=== PATIENT | female | born 1985 | race Caucasian/White ===

== ENCOUNTER 2019-07-27 11:21 | Emergency (ER) | payer SELFPAY ==
[2019-07-27 11:22] VITALS: BP 112/65; PULSE 84; RESP 17; TEMP 37.1; O2SAT 100; BMI 24.9
--- NOTE | 2019-07-27 11:32 | ED.VISSUMM ---
- ER Visit Summary Date of Service: 07/27/19 Chief Complaint: Cough History of Present Illness: The patient is a 34 F who presents with a cough. She has had this cough for 3 weeks. She has had some nasal congestion associated with this. No fevers. She went to another ER twice last week. She was given Tessalon Perles, albuterol, prednisone and a cough syrup. She had a normal chest x-ray at that time. She states that she is still not getting any better. She coughed when she woke up this morning so she came into get evaluated here. No ear pain. No sore throat. Physical Examination: Vital signs reviewed. HEENT exam unremarkable. Heart is regular rate and rhythm without murmurs. Lungs are clear to auscultation. Abdomen is soft and nontender. Extremities reveal no edema. Skin exam normal. Neurologic exam normal. Test Results: None performed Emergency Department Course and Treatment: The patient's physical exam is normal. Her vital signs are normal as well. She is a smoker. I counseled her to refrain from smoking. I will give her a azithromycin for the longevity of her symptoms. I will give her Mucinex D as well. She will need to follow-up with her PCP if symptoms persist. Treatment Plan: [] Disposition: Discharge Impression: Acute bronchitis This note was generated with [employer] dictation software. It may contain incorrect words, spelling, and punctuation that were not noted in review of the chart prior to signing ED Disposition - Plan for ED Patient: Referrals: Care Physician,No Primary [Primary Care Provider] -
--- NOTE | 2019-07-27 11:34 | ED.DEP ---
ED Disposition - Plan for ED Patient: Disposition: Home or Assisted Living Instructions: BRONCHITIS, Antiobiotic Treatment (Adult) Prescriptions: Guaifenesin/Pseudoephedrne HCl [Mucinex D ER 600-60 mg Tablet] 1 ea PO BID #14 tab.er.12h Prescription Printed Azithromycin [Zithromax Z-José] 250 mg PO UD #1 box Prescription Printed Referrals: Care Physician,No Primary [Primary Care Provider] -
--- NOTE | 2019-07-27 11:49 | ED.RN ---
DISCHARGE INSTRUCTIONS GIVEN TO AND REVIEWED WITH PATIENT, PATIENT DENIES QUESTIONS OR CONCERNS AND VOICES UNDERSTANDING OF DISCHARGE INSTRUCTIONS. PT AMBULATE OUT OF ROOM WITHOUT DIFFICULTY.
== END 2019-07-27 11:49 | disposition home or self-care (01) ==
LOC: ED 11:41
PROVIDERS: Emergency Provider Emergency Medicine
DX: J20.9 Acute bronchitis, unspecified (principal); F17.200 Nicotine dependence, unspecified, uncomplicated
CPT/HCPCS: 99282

== ENCOUNTER 2019-08-01 15:37 | Emergency (ER) | payer SELFPAY ==
[2019-08-01 15:38] VITALS: BP 123/90; PULSE 91; RESP 16; TEMP 36.7; O2SAT 99; BMI 25.2
--- NOTE | 2019-08-01 15:40 | ED.DCSUM_ITS ---
History of Present Illness Chief Complaint: Chest Pain Informant: Patient Onset: Weeks - Approximately 2 weeks of URI symptoms with right-sided chest pain Context: Sudden Onset Timing: Continuous Quality: Pain Location: Right anterior chest Current Severity: Mild Maximum Severity: Severe Worsened by: Deep breathing and especially movement Relieved by: Nothing Associated Symptoms: Rhinorrhea, congestion and productive cough Narrative: Patient is a 34-year-old female who was seen twice at outside facility and treated with prednisone. She was seen on Monday, July 27 and treated with antibiotics because of the duration of her illness. She continues to smoke 1/2 pack/day. She does report nasal symptoms. She states she initially had ear pain and was told she had a serous otitis without evidence of infection. She denies headache. She denies visual, ocular auditory symptoms. She denies neck pain. She has no history of PE or DVT. She has no risk factor for either. She denies hemoptysis. There is no history of trauma to direct or indirect. There are no skin lesions. She denies leg pain, swelling or discoloration. Prior similar symptoms: Yes Recent Illness/Hospitalization: Yes Past Medical History - Allergies and Home Meds Allergies/Adverse Reactions: Allergies No Known Allergies Allergy (Verified 08/01/19 15:41) Primary Care Physician: Care Physician,No Primary [Primary Care Provider] - Prior records reviewed: Yes Lives: Alone Smoking Status: Current every day smoker Alcohol: Rare Drugs: None Review of Systems General: Denies: Chills, Fever, Malaise, Subjective, Sweats Eyes: Denies: Visual changes - bilaterally, Blurred Vision - bilaterally ENT: Reports: Rhinorrhea. Denies: Bilateral ear pain, Sore throat Cardiovascular: Reports: Chest pain. Denies: Palpitations, Heart racing Respiratory: Reports: Cough, Sputum. Denies: Dyspnea, Dyspnea on exertion Gastrointestinal: Denies: Abdominal pain, Nausea, Vomiting, Diarrhea, Melena, Hematochezia Genitourinary: Denies: Dysuria, Hematuria Musculoskeletal: Denies: Myalgias, Arthralgias, Neck pain, Back pain, Swelling, Extremity Pain Skin: Denies: Rash, Wounds Neurological: Denies: Headache, Weakness, Numbness Endocrine: Denies: Polyuria, Polydipsia Allergy: Denies: Uticaria, Swelling of the mouth Physical Exam Inital Vital Signs reviewed: Yes General: Well nourished, Well developed, No Acute Distress Head: Normocephalic, Atraumatic Eyes: Perrl, EOMI. Negative for: Pale conjunctiva, Scleral icterus ENT: Moist mucous membranes, No rhinorrhea, TM's clear Neck: Supple, Nontender, No lymphadenopathy, No JVD Cardiovascular: Regular rate, Regular rhythm, No murmurs, Normal S1, Normal S2 Respiratory: No distress, CTA bilaterally, Chest tenderness Abdomen: Soft, Nontender, Nondistended, Normal bowel sounds Back: Nontender, Normal Inspection Extremities: Nontender, No edema. Negative for: Calf Tenderness Skin: Normal color, No rash, No Trauma. Negative for: Cyanosis, Diaphoresis, Jaundice Neurological: Alert, Oriented x3, Cranial nerves II-XII grossly intact, Normal Strength, Normal Sensation Psychological: Normal affect, Normal Mood Diagnostic/Tx/Re-eval Chest X-Ray - ED: 2 View, Read by ED Physician, Normal, Heart, Mediastinum, Bony Structures, No Acute Disease, Chronic Changes, - - Is no infiltrate or effusion noted. There is hyper aeration. 08/01/19 16:00 Chest PA and Lateral [RAD] Stat Laboratory Results 08/01/19 08/01/19 15:50 15:50 WBC 14.8 H RBC 4.09 L Hgb 13.1 Hct 39.7 MCV 97.1 MCH 32.0 MCHC 33.0 RDW Std Deviation 48.1 H RDW Coeff of Mikey 13.6 Plt Count 233 MPV 10.7 Immature Gran % (Auto) 1.200 H Neut % (Auto) 55.5 Lymph % (Auto) 34.3 Nicol[place] % (Auto) 7.8 Eos % (Auto) 0.9 Baso % (Auto) 0.3 Absolute Neuts (auto) 8.2 H Absolute Lymphs (auto) 5.07 H Nucleated RBC % 0 Sodium 141 Potassium 3.0 L Chloride 106 Carbon Dioxide 26.0 Anion Gap 9 BUN 6 L Creatinine 0.79 Estim Creat Clear Calc 94.82 Est GFR (MDRD) Af Amer 107 Est GFR (MDRD) Non-Af 89 BUN/Creatinine Ratio 7.6 L Glucose 90 Calcium 8.0 L White count is elevated which may be secondary to burst of prednisone/steroids. There is no shift. Chest x-ray was unremarkable. Patient been informed she may cough for another 2+ weeks and to take anti-inflammatory for her chest pain. - Medical Decision Making Patient presents with respiratory symptoms for approximately 2 weeks. Since this is her fourth ER visit will obtain chest x-ray and blood work. Patient has been informed since she is a smoker she may have a cough for greater than 4 weeks. ED Disposition - Plan for ED Patient: Disposition: Home or Assisted Living Diagnosis: Bronchitis, Pleurisy without effusion Instructions: Pleurisy, URI, Viral w/ Wheezing (Adult) Referrals: Care Physician,No Primary [Primary Care Provider] - Additional Instructions: It is in your best interest to stop smoking. Because you are a smoker you may have a cough for an additional 2 to 3 weeks. Take 4 ibuprofen tablets every 8 hours for your chest pain.
[2019-08-01 16:00] LABS: Absolute Lymphocyte Count 5.07 X10^3/uL (0.83-4.51); Absolute Neutrophil Count 8.2 X10^3/uL (2.0-7.7); Basophil# 0.05 X10^3/uL; Basophil% 0.3 % (0-1); Eosinophil# 0.14 X10^3/uL; Eosinophils% 0.9 % (0-5); Hematocrit 39.7 % (37-47); Hemoglobin 13.1 g/dL (12.0-15.0); Lymphocyte # 5.07 X10^3/ul (4.0); Lymphocyte % 34.3 % (19-41); Mean Corpuscular Volume 97.1 fL (81-99); Mean Platelet Vol. 10.7 fl (6.2-12.0); Monocyte# 1.15 X10^3/uL; Monocyte% 7.8 % (0-10); NRBC Flagged by Analyzer 0 % (0-5); Neutrophil % 55.5 % (47-70); POSITIVE DIFFERENTIAL YES; Platelet Count 233 K/mm3 (150-450); RBC Distribution Width CV 13.6 % (11.6-14.6); RBC Distribution Width SD 48.1 fl (35.1-43.9); Red Blood Count 4.09 M/mm3 (4.2-5.4); White Blood Count 14.8 K/mm3 (4.4-11.0)
--- NOTE | 2019-08-01 16:00 | RAD_ITS ---
STUDY: X-RAY CHEST REASON FOR EXAM: Female, 34 years old. Right-sided pleuritic chest pain, cough and congestion. TECHNIQUE: 2 views COMPARISON: None. FINDINGS: The left lung appears well-expanded and clear. The right lung appears generally clear; however the right diaphragm in the posterior costophrenic angle lacks clear visibility suggesting mild right lower lobe infiltrate or atelectasis. Negative for substantial pleural effusion. Normal size heart. Normal mediastinum and liset. Normal visualized pulmonary arteries. Normal visualized aortic arch and descending thoracic aorta. Normal visualized thoracic spine. Normal visualized ribs, clavicles, and shoulders. There is no demonstrated abnormality of the visualized soft tissue structures of the upper abdomen. RAD/Chest PA and Lateral IMPRESSION: Indiscrete right hemidiaphragm in the posterior sulcus suggesting a small infiltrate or atelectasis without substantial pleural effusion. Otherwise normal chest. Electronically Signed: Gina Dorantes MD at 16:20 EST , Service support ,
[2019-08-01 16:04] LABS: Differential Indicated SCAN CRITERIA MET
[2019-08-01 16:13] LABS: Anion Gap 9 (5-15); BUN 6 mg/dL (7-18); BUN/Creat Ratio 7.6 RATIO (10-20); Chloride 106 mmol/L (98-107); Creatinine, Serum 0.79 mg/dL (0.55-1.02); EST Glomerular Filtration Rate 89 mL/min (>60); Est Glom Filt Rate - Afr Amer 107 mL/min (>60); Estimated Creatinine Clearance 94.82 ml/min; Glucose 90 mg/dL (74-106); Sodium Level 141 mmol/L (136-145)
[2019-08-01 16:25] VITALS: BP 111/72; PULSE 88; RESP 16; O2SAT 98
[2019-08-01 16:46] LABS: Differential Comment SCANNED
== END 2019-08-01 16:32 | disposition home or self-care (01) ==
PROVIDERS: Emergency Provider Emergency Medicine
DX: J40 Bronchitis, not specified as acute or chronic (principal); R09.1 Pleurisy; F17.210 Nicotine dependence, cigarettes, uncomplicated
CPT/HCPCS: 71046; 80048; 85025; 99284

== ENCOUNTER 2019-08-09 13:44 | Emergency (ER) | payer MEDICAID, SELFPAY ==
[2019-08-09 13:45] VITALS: BP 104/69; PULSE 88; RESP 13; TEMP 37; O2SAT 97; BMI 24.9
--- NOTE | 2019-08-09 14:01 | CT_ITS ---
STUDY: CT ABDOMEN AND PELVIS WITHOUT CONTRAST REASON FOR EXAM: Female, 34 years old. Abdominal pain. Ventral hernia repair. RADIATION DOSAGE (If Supplied By Facility): CTDIvol = ( 6.89 ) mGy, DLP = ( 309.85 ) mGycm TECHNIQUE: Transaxial images were obtained from the dome of the diaphragm to the symphysis pubis without oral contrast, and without intravenous contrast. Sagittal and coronal images were reconstructed. Individualized dose optimization techniques were used for this CT. COMPARISON: None. FINDINGS: The visualized lung bases are unremarkable. The visualized portions of the heart are within normal limits. Normal liver. Normal gallbladder and extrahepatic biliary system. Normal spleen. Normal pancreas. Normal bilateral adrenal glands. Mild degree of right hydronephrosis. Mild degree of dilatation of the proximal right ureter There is a 4.6 mm calculus in the mid pole calyx of the left kidney. Normal visualized stomach. Normal small intestine. Normal colon. The appendix is visualized and appears normal. Normal abdominal aorta. Normal inferior vena cava. Normal retroperitoneum. Normal urinary bladder. There is a 3.8 cm x 3.7 cm cystic mass in the right ovary. Prior hysterectomy. Prior tubal ligation. There is a small umbilical hernia containing fat. Normal osseous structures. CT/Abdomen/Pelvis without Cont IMPRESSION: 3.8 cm x 3.7 cm cystic mass in the right ovary. Mild degree of the right hydronephrosis and hydroureter. Electronically Signed: Eusebio White, at 15:21 EST , Service support ,
[2019-08-09 14:30] LABS: Internal QC Validated? YES +Cl - CLEAR BKGD
[2019-08-09 14:34] LABS: Pregnancy, Urine Negative Negative
--- NOTE | 2019-08-09 15:56 | ED.VIS.GI ---
History of Present Illness Chief Complaint: Abd Pain Narrative: Patient presenting for evaluation secondary to abdominal pain. Patient states she has been dealing with bronchitis over the course the last month. She has been on multiple medical managements for this including prednisone as well as antibiotics. She continues to have a nonproductive cough that is occasionally very forcible. Patient states she was having a coughing fit yesterday and felt that she may have potentially caused injury to a ventral hernia that she has. Patient states that she chronically has bulging at this ventral hernia that is just superior to her umbilicus. Patient reports that she has not been having any issues with nausea vomiting diarrhea constipation or decreased p.o. intake after this. Pain is worse with palpation. She denies any urinary signs or symptoms. Review of systems otherwise negative. Past Medical History - Allergies and Home Meds Allergies/Adverse Reactions: Allergies No Known Allergies Allergy (Verified 08/09/19 13:48) Primary Care Physician: Allegra Webb MD [STAFF PHYSICIAN] - Past Medical History: - - History of multiple abdominal surgeries Smoking Status: Current every day smoker Review of Systems All systems negative except as indicated General: Denies: Fever Eyes: Denies: Visual changes - bilaterally, Diplopia ENT: Denies: Rhinorrhea, Sore throat Cardiovascular: Denies: Chest pain, Palpitations Respiratory: Reports: Cough Gastrointestinal: Reports: Abdominal pain Genitourinary: Denies: Dysuria, Hematuria, Frequency Musculoskeletal: Denies: Back pain, Extremity Pain Skin: Denies: Rash, Wounds Neurological: Denies: Headache, Weakness, Numbness Psych: Denies: Depression Endocrine: Denies: Polyuria, Polydipsia Hematologic: Denies: Easy bleeding Allergy: Denies: Swelling of the mouth Physical Exam Vital Signs/Narrative: Vital Signs Temp Pulse Resp BP Pulse Ox 08/09/19 13:45 98.6 F 88 13 104/69 97 Inital Vital Signs reviewed: Yes General: Well nourished, Well developed, No Acute Distress Head: Normocephalic, Atraumatic Eyes: Perrl, EOMI ENT: Moist mucous membranes, No rhinorrhea Neck: Supple, Nontender Cardiovascular: Regular rate, Regular rhythm, No murmurs Respiratory: No distress, CTA bilaterally, Chest nontender Abdomen: Soft, Nondistended, Normal bowel sounds, Tender, Ventral hernia - Palpable just superior to the patient's umbilicus. This is tender to palpation and nonreducible. No evidence of overlying skin changes. Back: Nontender, Normal Inspection Extremities: Nontender, No edema Skin: Normal color, No rash Neurological: Alert, Oriented x3, Cranial nerves II-XII grossly intact, Normal Strength, Normal Sensation Psychological: Normal affect, Normal Mood Diagnostic/Tx/Re-eval - Medical Decision Making Patient presented with pain and ventral hernia. CT imaging was performed. This showed evidence of a fat-containing ventral hernia without evidence of incarceration or inflammatory changes. It did show evidence of a right sided ovarian cyst. Patient was informed of this, and she does know about this. Patient states that she just got out of detox, and does not have [employer] to follow-up with. She was provided with [employer] law office receptionist. Patient was given reassurance about her hernia. He was counseled on smoking cessation. ED Disposition - Plan for ED Patient: Disposition: Home or Assisted Living Diagnosis: Hernia, Ovarian cyst Instructions: Laparoscopic Hernia Repair, Ovarian Cyst Referrals: Allegra Webb MD [STAFF PHYSICIAN] -
== END 2019-08-09 16:05 | disposition home or self-care (01) ==
PROVIDERS: Emergency Provider Emergency Medicine
DX: K43.9 Ventral hernia without obstruction or gangrene (principal); N83.201 Unspecified ovarian cyst, right side; F17.200 Nicotine dependence, unspecified, uncomplicated; Z87.09 Personal history of other diseases of the respiratory system
CPT/HCPCS: 74176; 81025; 99282

== ENCOUNTER 2019-09-01 20:59 | Emergency (ER) | payer MEDICAID, SELFPAY ==
[2019-09-01 20:59] VITALS: BP 102/57; PULSE 88; RESP 15; TEMP 37.7; O2SAT 98; BMI 25.2
--- NOTE | 2019-09-01 21:14 | RAD_ITS ---
HISTORY: COUGH X 3 MONTHS, CURRENT SMOKER EXAM: XR Chest 2 Views: COMPARISON: August 01, 2019 FINDINGS: # of images incl. paperwork: 2 Lungs are clear. Heart is not enlarged. No acute osseous pathology perceived. Pulmonary vascularity is distinct. No effusions. RAD/Chest PA and Lateral IMPRESSION: Normal. at 2201 Reported and signed by: Heri Murphy MD Electronically Signed: Heri Murphy MD at 22:00 EST Tel , Service support ,
--- NOTE | 2019-09-01 22:26 | ED.VIS.GEN ---
History of Present Illness Chief Complaint: Cough Informant: Patient Onset: Month(s) Context: Gradual Onset Timing: Waxes and wanes Current Severity: Moderate Maximum Severity: Moderate Narrative: Patient presents with continued upper respiratory symptoms and bronchitis. She states the past 3 months she has had frequent URIs. She is been seen at the ER 3 times in the past month and a half. Patient states that she has cough with white phlegm and congestion. She does have sore throat. Yesterday she noted a fever and this prompted her return visit to the ER. She has some right lateral abdominal pain that is worse with palpation and movement. She thinks she pulled a muscle with coughing. She states she is had intermittent wheezing. Patient reports that approximately 6 weeks ago she was treated with antibiotics and prednisone and did improve for a while, but symptoms slowly recurred. She was seen at an urgent care last week and given Tessalon Perles and an albuterol inhaler but reports no significant provement with that. Patient does continue to smoke. She states she just recently got insurance and does not have a primary care physician at this time. - Past Medical History (1) Migraine Status: Chronic (2) Ovarian cyst Status: Chronic (3) Anxiety Status: Chronic (4) Depression Status: Chronic (5) History of appendectomy Status: Chronic (6) History of hysterectomy Status: Chronic Past Medical History - Allergies and Home Meds Allergies/Adverse Reactions: Allergies No Known Allergies Allergy (Verified 09/01/19 21:03) Primary Care Physician: Ana Lopez MD [STAFF PHYSICIAN] - As soon as possible Prior records reviewed: Yes Surgical History: appendectomy, hysterectomy Smoking Status: Current every day smoker Review of Systems General: Reports: Fever, Subjective, Sweats Eyes: Denies: Visual changes - bilaterally ENT: Reports: Sore throat. Denies: Bilateral ear pain Cardiovascular: Denies: Chest pain Respiratory: Reports: Dyspnea, Cough, Sputum, - - Wheezing Gastrointestinal: Reports: Abdominal pain. Denies: Nausea, Vomiting, Diarrhea Genitourinary: Denies: Dysuria Skin: Denies: Rash Neurological: Denies: Headache Hematologic: Denies: Easy bruising, Easy bleeding Allergy: Denies: Uticaria Physical Exam Vital Signs/Narrative: Vital Signs Temp Pulse Resp BP Pulse Ox 09/01/19 20:59 99.8 F H 88 15 102/57 L 98 Inital Vital Signs reviewed: Yes General: Well nourished, Well developed Head: Normocephalic Eyes: Perrl, EOMI ENT: Moist mucous membranes, No rhinorrhea, TM's clear Neck: Supple, - - Mild bilateral lymphadenopathy, right greater than left. Cardiovascular: Regular rate, Regular rhythm Respiratory: No distress, CTA bilaterally Abdomen: Soft, Nontender, Hypoactive bowel sounds Extremities: Nontender Skin: Normal color, No rash Neurological: Alert, Oriented x3 Psychological: Normal affect Diagnostic/Tx/Re-eval Impressions Chest X-Ray 09/01/19 21:14 IMPRESSION: Normal. at 2201 Reported and signed by: Heri Murphy MD Electronically Signed: Heri Murphy MD at 22:00 EST Tel , Service support , 09/01/19 21:14 Chest PA and Lateral [RAD] Stat - Medical Decision Making X-ray is unremarkable. Patient be treated with a course of doxycycline and prednisone. She will continue to use her inhaler at home. She is referred to Dr. Millan to establish a local primary care physician. ED Disposition - Plan for ED Patient: Disposition: Home or Assisted Living Diagnosis: Bronchitis Instructions: BRONCHITIS, Antiobiotic Treatment (Adult) Prescriptions: Doxycycline 100 mg PO BID #20 cap Prescription Printed Prednisone 10 mg PO UD #33 tab Prescription Printed Referrals: Ana Lopez MD [STAFF PHYSICIAN] - As soon as possible
[2019-09-01] MEDS: Doxycycline 100 MG CAPSULE PO (22:39)
[2019-09-01] MEDS: predniSONE 20 MG Tablet 40 MG PO (22:39)
[2019-09-01 22:43] VITALS: PULSE 89; RESP 18; O2SAT 97
== END 2019-09-01 22:43 | disposition home or self-care (01) ==
PROVIDERS: Emergency Provider Emergency Medicine
DX: J40 Bronchitis, not specified as acute or chronic (principal); F17.200 Nicotine dependence, unspecified, uncomplicated
CPT/HCPCS: 71046; 99283

== ENCOUNTER 2019-09-05 03:48 | Emergency (ER) | payer MEDICAID, SELFPAY ==
[2019-09-05 03:49] VITALS: BP 101/66; PULSE 81; RESP 16; TEMP 36.9; O2SAT 97; BMI 24.5
--- NOTE | 2019-09-05 04:16 | ED.VIS.BACK ---
History of Present Illness Chief Complaint: Cough Informant: Patient Onset: Days Context: Gradual Onset Injury: - - coughing Timing: Continuous Quality: Sharp Location: Lumbar Current Severity: Severe Maximum Severity: Severe Worsened by: improves with: Movement Relieved by: Nothing Narrative: Patient is a 34-year-old female with history of tobacco abuse and bronchitis presenting with low back pain. Patient states she has had bronchitis in the flu over the past 3 months. She is currently on a course of doxycycline and prednisone. She states over the past few days she has had worsening right lower back pain. She thinks it is from all of her coughing. She has the pain is worse when she tries to move. She has been taking ibuprofen for pain with no significant relief. She denies any radiation of pain. She denies any incontinence. She notes she does have increased urinary frequency but denies any dysuria, hematuria or abnormal vaginal bleeding/discharge. She had a hysterectomy and is not concerned for . She does report a fever of 101 2 days ago. No fever today. She denies any other complaints at this time. Past Medical History - Allergies and Home Meds Allergies/Adverse Reactions: Allergies No Known Allergies Allergy (Verified 09/05/19 03:59) Primary Care Physician: Care Physician,No Primary [Primary Care Provider] - Past Medical History: - - Anxiety, depression, bronchitis, low back pain, migraine headaches, ovarian cyst Surgical History: appendectomy, hysterectomy Smoking Status: Current every day smoker Review of Systems General: Denies: Chills, Fever, Sweats Eyes: Denies: Visual changes - bilaterally, Diplopia ENT: Denies: Rhinorrhea, Sore throat Cardiovascular: Denies: Chest pain, Palpitations Respiratory: Reports: Cough - For the past 3 months. Denies: Dyspnea, Dyspnea on exertion Gastrointestinal: Denies: Abdominal pain, Nausea, Vomiting, Diarrhea, Melena, Hematochezia Genitourinary: Denies: Dysuria, Hematuria, Frequency Musculoskeletal: Reports: Back pain - Right lower. Denies: Extremity Pain Skin: Denies: Rash, Wounds Neurological: Denies: Headache, Weakness, Numbness Physical Exam Vital Signs/Narrative: Vital Signs Temp Pulse Resp BP Pulse Ox 09/05/19 03:49 98.5 F 81 16 101/66 97 Inital Vital Signs reviewed: Yes General: Well nourished, Well developed Head: Normocephalic, Atraumatic Eyes: Perrl, EOMI ENT: Moist mucous membranes, No rhinorrhea Neck: Supple, Nontender Cardiovascular: Regular rate, Regular rhythm, No murmurs Respiratory: No distress, CTA bilaterally, Chest nontender, - - Patient does not cough during my evaluation Abdomen: Soft, Nontender, Nondistended, Normal bowel sounds, No masses Back: Normal Inspection, Paraspinal Tenderness - Right lower lumbar, Negative SLR - Right, Negative SLR - Left. Negative for: Spinal tenderness, CVA tenderness Extremeties: Nontender, No edema, Strong Pulses, Symmetric Skin: Normal color, No rash Neuro: Alert, Oriented, Normal Strength, Normal Sensation, Normal DTR, Normal Gait Psychological: Normal affect Diagnostic/Tx/Re-eval Laboratory Data 09/05/19 04:25 Urine Color Yellow Urine Clarity Clear Urine pH 6.5 Ur Specific [place] 1.015 Urine Protein Negative Urine Glucose (UA) Normal Urine Ketones Negative Urine Occult Blood Negative Urine Nitrite Negative Urine Bilirubin Negative Urine Urobilinogen Normal Ur Leukocyte Esterase 25 H Urine RBC 0 SEEN Urine WBC 0-5 SEEN Ur Squamous Epith Cells 0-5 SEEN Urine Bacteria 0 SEEN Urine Mucus 0 SEEN - Medical Decision Making Patient is evaluated for atraumatic low back pain. She attributes it to her recent bronchitis and coughing. She states it feels like she pulled a muscle in her back. Patient does have right paraspinal tenderness palpation. She does not have CVA tenderness. A urinalysis is obtained which is 25 leukoesterase but otherwise normal. I do not suspect pyelonephritis or ureterolithiasis as the cause of her pain. I do think this is muscle skeletal. She does not have any midline tenderness or findings concerning for cauda equina syndrome. In the ER she is treated with Norflex and a larger patch. She will be discharged home with a short course of Flexeril. She is encouraged to continue to alternate Tylenol and ibuprofen for her pain. She is counseled that she can get Lidoderm patches 4% [id number] at any local drugstore. Patient is counseled on signs and symptoms requiring return to the emergency room. Patient verbalizes agreement and understand this plan. Patient discharged home in stable and improved condition. ED Disposition - Plan for ED Patient: Disposition: Home or Assisted Living Diagnosis: Low back pain Instructions: Back Sprain/Strain Prescriptions: cycloBENZAPRine HCl [Flexeril] 10 mg PO TID PRN PRN #15 tab PRN Reason: Muscle Spasm Prescription Printed Referrals: Ana Lopez MD [STAFF PHYSICIAN] - Additional Instructions: It is very important that you establish and follow-up with a primary care doctor. I suspect you pulled a muscle in your back or have a muscle spasm that is causing your pain today. I do not think you have any problem kidneys at this time. Apply heat to your back for pain. Continue to alternate ibuprofen and Tylenol. Return the emergency room if you have worsening symptoms.
[2019-09-05] MEDS: Orphenadrine 60 MG/2 ML Ampul IM (04:17)
[2019-09-05 04:30] LABS: Bacteria 0 SEEN /hpf (None Seen); Mucous, Urine 0 SEEN /hpf (<or=2+); Red Blood Cells-Urine 0 SEEN /hpf (0-5)
[2019-09-05 04:31] LABS: Color, Urine Yellow (Yellow); Glucose, Dipstick Normal (Normal); Ketone-Dipstick Negative (Negative); Leukocyte Esterase-Dipstick 25 /ul (Negative); Nitrite-Dipstick Negative (Negative); Occult Blood-Urine Negative /ul (Negative); Protein-Dipstick Negative (Negative); Specific Gravity, Urine 1.015 (1.002-1.030); Urine Bilirubin Dipstick Negative (Negative); Urine Clarity Clear (Clear); Urine Urobilinogen Normal (Normal); Urine pH 6.5 (5.0 - 8.0)
[2019-09-05] MEDS: Lidocaine 5% Patch 1 PATCH TOPICAL (04:48)
[2019-09-05 04:55] LABS: Squamous Epithelial Cells - UA 0-5 SEEN /hpf (5-10); White Blood Cells 0-5 SEEN /hpf (0-5)
[2019-09-05 05:20] VITALS: BP 134/79; PULSE 81; RESP 18; O2SAT 98
--- NOTE | 2019-09-05 05:20 | ED.RN ---
THIS NURSE REVIEWED D/C INSTRUCTIONS WITH PT. PT VERBALIZED UNDERSTANDING OF INSTRUCTIONS. PT DENIES FURTHER NEEDS OR QUESTIONS AT THIS TIME. PT AMBULATES FROM ROOM ON OWN WITHOUT ASSISTANCE FROM STAFF
== END 2019-09-05 05:21 | disposition home or self-care (01) ==
PROVIDERS: Emergency Provider Emergency Medicine
DX: M54.5 Low back pain (principal); J40 Bronchitis, not specified as acute or chronic; R35.0 Frequency of micturition; F17.200 Nicotine dependence, unspecified, uncomplicated
CPT/HCPCS: 81001; 96372; 99283